=== PATIENT | female | born 1980 | race Caucasian/White ===

== ENCOUNTER 2019-01-21 09:55 | Emergency (ER) | payer OTHER ==
[~2019-01-21] VITALS: Ht 170.2 cm; Wt 59.0 kg
[~2019-01-21 09:55] MED LIST: DOXY100C41 PO
--- NOTE | 2019-01-21 10:07 | NUR ---
PT A/OX4, PRESENTS TO THE ER C/O BACK PAIN THAT STARTED WHEN SHE "MOVED THE WRONG WAY" IN THE SHOWER AT 0830 TODAY. PT REPORTS PAIN IS PROVOKED UPON MOVEMENT, SHARP IN QUALITY, DOES NOT RADIATE, 9/10, CONSTANT. PT DENIES FALL/TRAUMA PRIOR TO THE ONSET OF BACK PAIN. VSS. PT DENIES C/P, SOB, N/V/D, DIZZINESS, HEADACHE.
--- NOTE | 2019-01-21 10:12 | NUR ---
KENJI HOOK AT BEDSIDE FOR MSE.
[2019-01-21] MEDS ORDERED: HYDROMORPHONE 1 MG/1 ML DISP.SYRIN ONE (10:21)
[2019-01-21] MEDS ORDERED: ONDANSETRON 4 MG/2 ML VIAL ONE (10:21)
[2019-01-21] MEDS ORDERED: ONDANSETRON 4 MG/2 ML VIAL IM ONE (10:30)
[2019-01-21] MEDS ORDERED: HYDROMORPHONE 1 MG/1 ML DISP.SYRIN IM ONE (10:30)
--- NOTE | 2019-01-21 10:31 | NUR ---
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
--- NOTE | 2019-01-21 10:49 | NUR ---
Patient discharged to home in stable conditon. Written and verbal after care instructions given. Patient verbalizes understanding of instructions. ALL BELONGINGS W/ PT. PT SELF-AMBULATED W/O DIFFICULTY.
[2019-01-21 10:51] VITALS: BP 115/71
== END 2019-01-21 10:51 | disposition home or self-care (01) ==
LOC: ER 09:55
DX: M54.6 Pain in thoracic spine (principal); R07.89 Other chest pain; Z88.0 Allergy status to penicillin; Z79.2 Long term (current) use of antibiotics
CPT/HCPCS: 71045; 96372 ×2; 99283; J1170; J2405; A4663